=== PATIENT | female | born 1980 | race Caucasian/White ===

== ENCOUNTER 2022-06-13 09:46 | Outpatient (CLI) | payer MEDICARE, MEDICAID, SELFPAY ==
[2022-06-13 10:16] LABS: Hematocrit 39.4 % (37.0-47.0); Hemoglobin 13.1 g/dL (12.0-15.0); Mean Corpuscular HGB Conc 33.2 g/dl (32-36); Mean Corpuscular Hemoglobin 29.2 pg (26-34); Mean Corpuscular Volume 87.8 fl (80-100); Mean Platelet Volume 9.8 fl (7.4-10.4); Platelet Count Result 238 k/mm3 (150-375); Red Blood Count 4.49 M/mm3 (4.2-5.4); Red Cell Distribution Width 12.3 % (11.5-14.5); White Blood Count 6.1 K/mm3 (4.5-10.0)
== END 2022-06-13 09:47 | disposition home or self-care (01) ==
PROVIDERS: Visit Provider Obstetrics & Gynecology Gynecologic Oncology
DX: Z01.818 Encounter for other preprocedural examination (principal)
CPT/HCPCS: 36415; 85027; 86850; 86900; 86901

== ENCOUNTER 2022-06-17 00:06 | Day surgery (SDC) | payer MEDICARE, MEDICAID, SELFPAY ==
[2022-06-09 14:37] VITALS: BMI 21.5
--- NOTE | 2022-06-09 14:51 | SUR.PREOP ---
Report to the Outpatient Waiting Room, entrance under the green pavilion located off [facility], at time _1000 on date _06/17/22 . OR Time: _1200 .your visitor will be asked a series of questions to screen for COVID 19 for your protection. - Only one visitor is allowed at this time. - The patient visitor is requested to leave or wait in car when not with patient. - A mask is required within the hospital. Patients may have clear liquids (water, carbonated beverages, clear teas, apple juice) until 3 hours prior to surgery with a maximum of 20 ounces. - No food from midnight until time of surgery - Infants may have breast milk until 4 hours before surgery, infant formula 6 hours prior to surgery. - Children will be allowed to drink immediately following surgery. If applicable, please bring a bottle or sippy cup to assist with drinking. Juice, water, soda, and popsicles are readily available. For infants on formula, please bring formula the day of surgery. Pacifiers are allowed. Take the following medications with a SIP of water the morning of surgery: ___n/a Medications to discontinue per physician ___n/a Date to take last dose___n/a Please no make-up, nail mohawk, hairspray, perfume, deodorant, or body powder the day of surgery. No jewelry (including any body piercings) or valuables the day of surgery, leave them at home. Please take a shower or bath the night before, or the morning of, surgery with an antibacterial soap. Wear comfortable, loose fitting clothing. Children are encouraged to wear pajamas. - Jewelry must be removed prior to entering the operating room. Rings and piercings that are not removed may be cut off. - The hospital will not accept responsibility for valuables. - Please leave all valuables, including medications, at home the day of surgery. If you are going home after surgery, a licensed funeral limousine driver must drive you home. - NO public transportation without another adult. - We recommend that an adult stay with you for 24 hours following discharge. - We also recommend that you do not drive, make important decision, drink alcoholic beverages, or take any drugs that were not prescribed by your health care provider for at least 24 hours after your discharge time. For Pediatric surgeries, we recommend two adults accompany the child home (only one inside the building at this time). Follow any additional instructions given to you from your surgeon. If you or anyone in your household have experienced Covid symptoms in the past week, please notify your surgeon or the nurse liaison at the phone number below for possible testing. Telephone instructions given to _indio stewart and asked if any additional questions and then verbalized understanding. Patient advised to call surgeon office or pre surgery nurse liaison [phone] if any additional questions.
--- NOTE | 2022-06-16 13:03 | WPDANESEPPF ---
Anes - Initial Pre Proc Eval Procedure: Operation Date: 06/17/22 10:30 Proposed Procedures p Diagnostic Laparoscopy, Bilateral Laparoscopic Salpingectomy, with Nexplanon Removal - Ayesha Cárdenas DO Date/Time: 06/16/22 13:03 Surgeon: Ayesha Cárdenas DO Pre Op Diagnosis: desires sterilization Patient Data Age: 41 Gender: F Height: 1.78 m Weight: 68.18 kg Allergies Allergy/AdvReac Type Severity Reaction Status Date / Time vancomycin Allergy Intermediate Hives Verified 06/17/22 09:09 Home Medications Medication Instructions Recorded Confirmed Type albuterol sulfate 90 mcg/actuation 1 puff inhalation PRN 06/09/22 06/17/22 History aerosol inhaler diclofenac sodium 50 mg 50 mg PO DAILY 06/09/22 06/17/22 History tablet,delayed release lamotrigine 200 mg tablet 200 mg PO DAILY 06/09/22 06/17/22 History semaglutide 14 mg tablet (Rybelsus) 14 mg PO DAILY 06/09/22 06/17/22 History sertraline 25 mg tablet 25 mg PO DAILY 06/09/22 06/17/22 History tizanidine 2 mg tablet 2 mg PO PRN 06/09/22 06/17/22 History Patient hx anesthesia problems: none Family hx anesthesia problems: none Results Review: All pre-operative results and documents have been reviewed as part of the pre-operative evaluation. PENDING SALE TO [facility] Past Medical History Medical History (Updated 06/16/22 @ 13:04 by Vicente Cooley MD) Arthritis Eczema Psoriasis Social History Social History Smoking status: Never smoker Living arrangements: with family Spiritual care concerns: No Anes - Eval Final PreProcedure Day of Procedure 06/16/22 13:03 Patient weight: normal Heart: regular rate and rhythm Lungs: clear to auscultation and normal air movement Airway: Mallampati scale class II Neurological: alert and oriented Last oral intake: >/= 8 hours ASA classification: II Emergent: no Anesthetic plan: proceed Anesthesia type and monitoring: general ETT Results Review: All pre-operative results and documents have been reviewed as part of the pre-operative evaluation. Informed Consent: The patient's anesthetic plan and its attendant risks and benefits were discussed with the patient/family/POA. Questions were solicited and answers provided to the satisfaction of the patient/family/POA.
[2022-06-17] VITALS (8 sets, daily range): BP systolic 103–121; BP diastolic 58–72; PULSE 49–63; RESP 12–16; TEMP 36.6–36.8; O2SAT 100
[2022-06-17] MEDS: GABAPENTIN 300 MG CAPSULE PO (09:24)
[2022-06-17] MEDS: ACETAMINOPHEN 500 MG TABLET 1000 MG PO (09:24)
[2022-06-17] MEDS: LACTATED RINGERS 1,000 ML 30 ML IV CONT ×2 (09:32→11:25)
--- NOTE | 2022-06-17 10:05 | PM.IMHP ---
H&P: HPI History of Present Illness Date/Time: 06/17/22 10:05 Chief Complaint: I'm here to have my tubes out Narrative: Liza presents with undesired fertility and would like her Nexplanon removed. Review of Systems Review of Systems: All systems reviewed & are unremarkable except as noted in HPI and below [facility] Past Medical History Medical History (Updated 06/17/22 @ 10:06 by Ayesha Cárdenas DO) Arthritis Eczema Psoriasis Social History Social History Smoking status: Never smoker Living arrangements: with family Spiritual care concerns: No Meds Home Medications and Allergies Home Medications Medication Instructions Recorded Confirmed Type albuterol sulfate 90 mcg/actuation 1 puff inhalation PRN 06/09/22 06/17/22 History aerosol inhaler diclofenac sodium 50 mg 50 mg PO DAILY 06/09/22 06/17/22 History tablet,delayed release lamotrigine 200 mg tablet 200 mg PO DAILY 06/09/22 06/17/22 History semaglutide 14 mg tablet (Rybelsus) 14 mg PO DAILY 06/09/22 06/17/22 History sertraline 25 mg tablet 25 mg PO DAILY 06/09/22 06/17/22 History tizanidine 2 mg tablet 2 mg PO PRN 06/09/22 06/17/22 History Allergies Allergy/AdvReac Type Severity Reaction Status Date / Time vancomycin Allergy Intermediate Hives Verified 06/17/22 09:09 Vital Signs Vital Signs - 24 hr 06/17/22 08:51 Temperature 36.8 C Pulse Rate 63 Respiratory Rate 16 Blood Pressure 117/65 Pulse Oximetry 100 Oxygen Delivery Room Air Exam Const: General: comfortable and no acute distress Neck: Neck: supple Resp: Effort & Inspection: normal respiratory effort Auscultation: clear to auscultation bilaterally Cardio: Rate: regular rate Rhythm: regular rhythm GI: GI Palp: Yes Soft to palpation Auscultation: normal bowel sounds Skin: General skin exam: normal color and no rashes or lesions noted Neuro: General: gait normal Speech: normal speech Motor exam (neuro): 5/5 motor strength present throughout Extrem: General: normal to inspection Psych: Mental Status: mental status grossly normal Assessment and Plan Assessment and plan (1) Sterilization: Code(s): Z30.2 - Encounter for sterilization Status: Acute Plan Diagnostic laparoscopy, bilateral salpingectomy
--- NOTE | 2022-06-17 10:07 | WPDHPUPDATE1 ---
History and Physical Update Update Date/Time: 06/17/22 10:07 History and Physical has been reviewed, including an updated exam of the patient. There are NO changes in the patient's condition. Risks, benefits, and alternatives have been discussed and questions answered. Patient agrees to proceed with procedure.
--- NOTE | 2022-06-17 11:24 | W.PM.PROC2 ---
Procedure Note - Detailed Date of Procedure 06/17/22 Pre-op Diagnosis desires sterilization Post-op Diagnosis Same Procedure Performed Diagnostic laparoscopy, bilateral salpingectomy. Nexplanon removal. Surgeon Ayesha Cárdenas, DO Anesthesia General Indications Undesired fertility Findings Normal appearing vulva and vaginal canal. Normal medium sized cervix. Internally, the bowel, liver and pelvic organs were unremarkable. Her tubes both seemed scarred near the cornua. There were some filmy adhesions from the right ovary to the cul-de-sac and the pelvic sidewall. These were clear and not dense. Description of Procedure The patient was taken to the operating room where she was placed under general anesthesia. She was prepped and draped in the normal sterile fashion in a dorsal lithotomy position. No preoperative antibiotics were indicated. After a time-out was performed, a speculum was placed in the vagina and the cervix was visualized. Anterior lip of the cervix was grasped with a single-tooth tenaculum and the cervix was sequentially dilated up to accommodate a Kroner uterine manipulator. Once the manipulator was placed, the speculum and the tenaculum were removed. Patient was placed in low lithotomy position and gloves were changed. Attention was then turned to the abdomen. The skin above the umbilicus was grasped with 2 penetrating towel clamps and injected with local. A small incision was made and a Veress needle was introduced. Water drop test was performed to confirm intraperitoneal placement. CO2 insufflation was started and the abdomen was brought to a filling pressure of 15 mmHg. Once the abdomen was insufflated the Veress needle was replaced with a 5 mm Optiview trocar which was introduced under direct visualization. Survey of the abdomen revealed no evidence of bowel or vascular injury upon entry. Patient was placed in steep Trendelenburg position. Additional port sites in the right and left lower quadrants were identified, injected and incised. 5 mm trocars were introduced under direct visualization. The pelvic organs were surveyed and were found as described above. The left tube was elevated and cauterized and transected off. It was passed off through the surgical assistant port. The right tube was somewhat difficult to see as it was closely adhered to the ovary and wrapped underneath the adnexa. The filmy adhesions attaching the right ovary to the posterior cul-de-sac and the uterus were easily transected using blunt and cold dissection. Once the ovary was free the path of the fallopian tube was easier to see. The tube was then elevated and cauterized and transected off. It was passed off through the surgical assistant port. The surgical pedicles were reexamined and found to be hemostatic. The instruments and trocars removed from the abdomen and the CO2 was allowed to escape. The abdominal incisions were closed with 4-0 Monocryl in a subcuticular fashion. Incisions were covered with Mastisol and Steri-Strips. The uterine manipulator was removed. We then proceeded with Nexplanon removal. The patient's left arm had previously been marked at the site of her implant. The area was then prepped and draped in the usual fashion. Local anesthetic was injected. Small incision was made in the skin and the Nexplanon was pushed through this incision. The capsule around the implant was dissected off using blunt and sharp dissection. The Nexplanon was grasped with a hemostat was removed intact. The incision was covered with Mastisol and Steri-Strips and the arm was wrapped with Coban. The patient was taken to the recovery room in stable condition. All instrument and sponge counts were correct at the conclusion of the procedure port. Estimated Blood Loss 5 IV Fluids 1,000 Drains No Packing No Pathology Yes Complications No immediate complications Condition Stable Disposition PACU
[2022-06-17] MEDS: BUPIVACAINE/EPINEPHRINE 0.25% 50 ML VIAL 20 ML INFILTRATE (11:28)
--- NOTE | 2022-06-17 11:49 | SUR.PHASEI ---
1132- oral airway removed
[2022-06-17] MEDS: fentaNYL CITRATE INJ (*CRX) 100 MCG/2 ML VIAL 25 MCG IV PUSH ×2 (12:05→12:28)
[2022-06-17] MEDS: oxyCODONE HCL (*CRX) 5 MG TAB IR PO (12:44)
== END 2022-06-17 13:38 | disposition home or self-care (01) ==
PROVIDERS: Visit Provider Obstetrics & Gynecology Gynecologic Oncology
PROC: (CPT 49320; principal; 2022-06-17 10:30)
DX: Z30.2 Encounter for sterilization (principal); Z30.49 Encounter for surveillance of other contraceptives; N83.8 Other noninflammatory disorders of ovary, fallopian tube and broad ligament; Z79.51 Long term (current) use of inhaled steroids; L30.9 Dermatitis, unspecified; L40.9 Psoriasis, unspecified
CPT/HCPCS: 58661; 11982; 36415; 85027; 86850; 86900; 86901; 88302; A9270; J1100; J1885; J2250; J2405; J2704; J3010; J7120